=== PATIENT | male | born 1950 | race Caucasian/White ===

== ENCOUNTER 2019-02-21 10:09 | Outpatient (CLI) | payer MEDICARE, BC ==
--- NOTE | 2019-02-23 11:57 | RAD ---
Exam: Chest 2 views HISTORY:Dyspnea Comparison: None FINDINGS: Lungs: No masses or consolidation. Hyperinflated. Cardiac silhouette:Borderline in size Pulmonary vessels: Normal Pleural Spaces: Clear Pneumothorax: None Osseous abnormalities: None of acuity. IMPRESSION: 1. No focal consolidation. 2. COPD
== END 2019-02-21 10:10 | disposition home or self-care (01) ==
LOC: RAD 10:09
PROVIDERS: ATTEND Internal Medicine
DX: R06.00 Dyspnea, unspecified (principal); J44.9 Chronic obstructive pulmonary disease, unspecified
CPT/HCPCS: 71046

== ENCOUNTER 2019-06-10 12:26 | Outpatient (CLI) | payer MEDICARE, BC ==
--- NOTE | 2019-06-13 08:37 | PFT ---
PATIENT HISTORY: HEIGHT: 70 IN WEIGHT; 206 SMOKER: NEVER HOW LONG: NA PACKS PER DAY: PRODUCTIVE COUGH: LUNG DISEASE: PHYSICIAN INTERPRETATION PFT data: 06/10/19 FEV1is disproportionally decreased to the Forced Vital Capacity.There is no improvement in FEV1 after Bronchodilatation. Residual Volume is elevated. Total lung capacity is normal. DLCO is Normal. IMPRESSION: This a moderate restrictive impairment with no improvement in FEV1 after Bronchodilatation. Air trapping is present. Gas exchange is normal. Breakfast Attendant: EMILIANA Reporter: EMILIANA ESPINOZA
== END 2019-06-10 12:27 | disposition home or self-care (01) ==
LOC: CP 12:26
PROVIDERS: ATTEND Internal Medicine
DX: J45.909 Unspecified asthma, uncomplicated (principal); K21.9 Gastro-esophageal reflux disease without esophagitis
CPT/HCPCS: 94060; 94727; 94729